=== PATIENT | male | born 1950 | race Caucasian/White ===

== ENCOUNTER → 2018-10-25 | Outpatient (CLI) | payer MEDICARE, OTHER ==
[~2018-10-25] MED LIST: ASPI81TA94 PO; LISI5TAB25 PO; METO25TA93 PO; SIMV-54 PO; ZOLP-360 PO
== END ==
LOC: AMB 14:41
PROVIDERS: ATTEND Nurse Practitioner
DX: R10.9 Unspecified abdominal pain (principal); R07.9 Chest pain, unspecified
CPT/HCPCS: A0425; A0426